=== PATIENT | female | born 1965 | race Caucasian/White ===

== ENCOUNTER 2022-03-12 04:55 | Emergency (ER) | payer BC, OTHER ==
[2022-03-12] MEDS ORDERED: predniSONE 20 MG TABLET (UD) PO ONE (05:01)
[2022-03-12] MEDS ORDERED: diphenhydrAMINE HCL 50 MG CAPSULE PO ONE (05:01)
[2022-03-12 05:08] VITALS: BP 116/88; PULSE 95; RESP 14; TEMP 98.4; BMI 44.4
[2022-03-12] MEDS ORDERED: predniSONE 20 MG TABLET (UD) ONE (05:12)
[2022-03-12] MEDS ORDERED: diphenhydrAMINE HCL 50 MG CAPSULE ONE (05:13)
== END 2022-03-12 05:21 | disposition home or self-care (01) ==
LOC: FER 04:55
DX: T78.40XA Allergy, unspecified, initial encounter (principal)
CPT/HCPCS: 99283-25